=== PATIENT | male | born 1975 | race American Indian/Alaskan Native ===

== ENCOUNTER 2020-01-22 13:33 | Emergency (ER) | payer SELFPAY ==
[2020-01-22 13:58] VITALS: BP 121/72
--- NOTE | 2020-01-22 14:14 | Event Note ---
ED Screening Note ED Screening Note: Patient states he was using a nail gun around 12 PM today while at work He states that the nail gun kicked back and hit him in the face He denies being hit by any nails just states that it was gone that hit him in the face He has right-sided maxillary tenderness/deformity He states his tetanus immunization is up-to-date This initial assessment/diagnostic orders/clinical plan/treatment(s) is/are subject to change based on patients health status, clinical progression and re- assessment by fellow clinical providers in the ED. Further treatment and workup at subsequent clinical providers discretion. Patient/guardian urged not to elope from the ED as their condition may be serious if not clinically assessed and managed. Initial orders include: CT facial bones Main ED for MD lange
--- NOTE | 2020-01-22 16:05 | Cat Scan Report ---
CT facial bones wo con INDICATION: kick back from nail gun, deformity right maxilla. TECHNIQUE: CT face. All CT scans at this location are performed using CT dose reduction for ALARA by means of automated exposure control. COMPARISON: None. FINDINGS: Facial bones: Mild soft tissue swelling over the right maxilla. Tiny laceration seen on sagittal imag e 26 of series 602 with a focus of air within the subcutaneous soft tissues. Facial bones are intact without fracture. Mandibular condyles are well-seated within the glenoid fossa of the temporal mandib ular joint. Sinuses: Paranasal sinuses and mastoid air cells are essentially clear. Orbits: Globes are intact. Additional findings:No other significant abnormality. IMPRESSION: 1. No facial bone fracture. Signer Name: Richard Patton MD Signed: 01/22/2020 4:01 PM Workstation Name: [id number]
== END 2020-01-22 17:00 | disposition left against medical advice (07) ==
LOC: ED 13:33
DX: R51.9 Headache, unspecified (principal); Z53.21 Procedure and treatment not carried out due to patient leaving prior to being seen by health care provider
CPT/HCPCS: 70486